=== PATIENT | female | born 2000 | race Hispanic/Latino ===

== ENCOUNTER 2023-07-06 10:35 | Day surgery (SDC) | payer OTHER, SELFPAY ==
[2023-07-06 11:25] LABS: Anion Gap 14 mmol/L (10-20); Calc. Creatinine Clearance 0 mL/min (70-130); Calcium 8.3 mg/dL (7.8-10.44); Carbon Dioxide 18 mmol/L (22-29); Chloride 107 mmol/L (98-107); Estimated GFR 133; Potassium 3.5 mmol/L (3.5-5.1); Sodium 135 mmol/L (136-145)
[2023-07-06 11:27] LABS: Hematocrit 39.2 % (34.9-44.5); Hemoglobin 13.3 g/dL (12.0-15.5); Mean Corpuscular HGB CONC 33.9 g/dL (32.0-36.0); Mean Corpuscular Volume 82.5 fl (81.6-98.3); Mean Platelet Volume 12.5 fl (7.4-10.4); Platelet Count 227 10x3/uL (150-450); RBC Distribution Width 14.2 % (11.5-14.5); Red Blood Cell (RBC) Count 4.75 10x6/uL (3.90-5.03); White Blood Cell (WBC) Count 14.2 10x3/uL (3.5-10.5)
[2023-07-06 11:29] LABS: MDiff Complete? YES
[2023-07-06 11:52] LABS: BUN (Urea Nitrogen) 5 mg/dL (7.0-18.7); Glucose 107 mg/dL (70-105)
[2023-07-06 13:06] LABS: Band 1 % (5-11); Eosinophils 2 % (0-10); Lymphocytes 13 % (21-51); Monocytes 1 % (0-10); Neutrophil 83 % (42-75)
[2023-07-06 13:07] LABS: Platelet Adequacy Comment Appears Adequate; RBC Morph Comment Within Normal Limits; Vacuoles SLIGHT
[2023-07-06] MEDS ORDERED: hydrALAZINE 20 MG/ML VIAL SLOW IVP PRN (14:03)
[2023-07-06] MEDS ORDERED: Acetaminophen 500 MG TAB PO PRN (14:03)
[2023-07-06] MEDS ORDERED: Promethazine HCl 25 MG/ML VIAL IM PRN (14:03)
[2023-07-06] MEDS ORDERED: Misoprostol 200 MCG TAB PR PRN (14:03)
[2023-07-06] MEDS ORDERED: Ondansetron PF 4 MG/2 ML Vial IVP PRN (14:03)
[2023-07-06] MEDS ORDERED: Oxytocin 30 units/NS 500 ML 500 ML IV SCH (14:15)
[2023-07-06] MEDS ORDERED: Acetaminophen 500 MG TAB PO SCH (16:30)
[2023-07-06 20:08] VITALS: BMI 26.5
[2023-07-07 13:00] LABS: Chlamydia by PCR, Vaginal Swab Not Detected (NotDetected); GC by PCR, Vaginal Swab Not Detected (NotDetected)
== END 2023-07-06 23:15 | disposition short-term general hospital (02) ==
LOC: CSHERS 10:35 → CSHLD/OP 13:21
PROVIDERS: ATTEND Obstetrics & Gynecology
DX: O20.8 Other hemorrhage in early pregnancy (principal); O99.891 Other specified diseases and conditions complicating pregnancy; R10.9 Unspecified abdominal pain; O34.32 Maternal care for cervical incompetence, second trimester; Z86.79 Personal history of other diseases of the circulatory system; Z87.51 Personal history of pre-term labor; Z87.59 Personal history of other complications of pregnancy, childbirth and the puerperium; Z79.82 Long term (current) use of aspirin; Z79.899 Other long term (current) drug therapy; Z90.49 Acquired absence of other specified parts of digestive tract; Z3A.18 18 weeks gestation of pregnancy
CPT/HCPCS: 76815; 80048; 85025; 86900; 86901; 87480; 87491; 87510; 87591; 87660; 99285

== ENCOUNTER 2023-07-09 20:16 | Inpatient (IN) | payer OTHER, SELFPAY ==
[2023-07-09] MEDS ORDERED: Oxytocin 30 units/NS 500 ML 500 ML ONE (20:25)
[2023-07-09] MEDS ORDERED: Morphine 4 MG/ML VIAL ONE (20:38)
[2023-07-09] MEDS ORDERED: Misoprostol 200 MCG TAB PR PRN (20:43)
[2023-07-09] MEDS ORDERED: Promethazine HCl 25 MG/ML VIAL IM PRN (20:43)
[2023-07-09] MEDS ORDERED: Diphenoxylate HCl/Atropine Tablet PO PRN (20:43)
[2023-07-09] MEDS ORDERED: hydrALAZINE 20 MG/ML VIAL SLOW IVP PRN (20:43)
[2023-07-09] MEDS ORDERED: Acetaminophen 500 MG TAB PO PRN (20:43)
[2023-07-09] MEDS ORDERED: Carboprost 250 MCG/ML AMP IM PRN (20:43)
[2023-07-09] MEDS ORDERED: Morphine 4 MG/ML VIAL SLOW IVP PRN (20:45)
[2023-07-09] MEDS ORDERED: Oxytocin 30 units/NS 500 ML 500 ML IV SCH (20:45)
[2023-07-09] MEDS: Lactated Ringer's 1,000 ML IV SCH (21:00)
[2023-07-09 21:28] VITALS: BMI 30.7
[2023-07-09 21:33] LABS: Hematocrit 36.5 % (34.9-44.5); Hemoglobin 12.5 g/dL (12.0-15.5); MDiff Complete? YES; Mean Corpuscular HGB CONC 34.2 g/dL (32.0-36.0); Mean Corpuscular Hemoglobin 28.6 pg (27.0-33.0); Mean Corpuscular Volume 83.5 fl (81.6-98.3); Mean Platelet Volume 12.1 fl (7.4-10.4); Platelet Count 217 10x3/uL (150-450); RBC Distribution Width 14.3 % (11.5-14.5); Red Blood Cell (RBC) Count 4.37 10x6/uL (3.90-5.03); White Blood Cell (WBC) Count 16.6 10x3/uL (3.5-10.5)
[2023-07-09] MEDS: Piperacillin/Tazobactam 3.375 GM in Sodium Chloride 0.9% 100 ML IVPB SCH (21:34)
[2023-07-09 21:42] LABS: ALT (SGPT) 15 U/L (8-55); AST (SGOT) 15 U/L (5-34); Albumin 3.1 g/dL (3.5-5.0); Alkaline Phosphatase 84 U/L (40-110); Anion Gap 14 mmol/L (10-20); BUN (Urea Nitrogen) 5 mg/dL (7.0-18.7); Bilirubin, Total 0.2 mg/dL (0.2-1.2); Calc. Creatinine Clearance 216 mL/min (70-130); Calcium 8.7 mg/dL (7.8-10.44); Carbon Dioxide 19 mmol/L (22-29); Chloride 108 mmol/L (98-107); Estimated GFR 132; Globulin 3.6 g/dL (2.4-3.5); Glucose 87 mg/dL (70-105); Potassium 3.5 mmol/L (3.5-5.1); Protein, Total 6.7 g/dL (6.0-8.3); Sodium 137 mmol/L (136-145)
[2023-07-09 21:57] LABS: Lymphocytes 13 % (21-51); Monocytes 5 % (0-10); Neutrophil 82 % (42-75)
[2023-07-09 22:03] LABS: Platelet Adequacy Comment Appears Adequate; RBC Morph Comment Within Normal Limits
[2023-07-09 22:50] LABS: Hep B Surf Ag - L&D Non-Reactive S/CO (NonReactive)
[2023-07-09 22:55] LABS: Syphilis Antibody Nonreactive (Nonreactive); Syphilis Antibody Index 0.09 S/CO (<1.00 Non-Reactive)
[2023-07-09] MEDS ORDERED: Morphine 4 MG/ML VIAL SLOW IVP SCH (23:15)
[2023-07-09] MEDS: Ondansetron PF 4 MG/2 ML Vial IVP PRN (23:38)
[2023-07-09] MEDS ORDERED: Piperacillin/Tazobactam 3.375 GM in Sodium Chloride 0.9% 100 ML IVPB SCH (23:59)
[2023-07-10] MEDS ORDERED: Morphine 4 MG/ML VIAL SLOW IVP PRN (01:34)
[2023-07-10] MEDS: Piperacillin/Tazobactam 3.375 GM in Sodium Chloride 0.9% 100 ML IVPB SCH ×2 (03:06→09:10)
[2023-07-10 03:50] LABS: #Basophils 0.1 10x3/uL (0.0-0.2); #Eosinphils 0.1 10x3/uL (0.0-0.5); #Monocytes 1.2 10x3/uL (0.0-1.1); #Neutrophils 16.4 10x3/uL (1.5-8.4); %Basophils 0.3 % (0.0-2.0); %Eosinophils 0.5 % (0.0-6.0); %Lymphocytes 8.2 % (18.0-47.0); %Monocytes 6.2 % (0.0-10.0); %Neutrophils 84.3 % (40.0-75.0); Hemoglobin 12.1 g/dL (12.0-15.5); Mean Corpuscular HGB CONC 34.6 g/dL (32.0-36.0); Mean Corpuscular Hemoglobin 28.7 pg (27.0-33.0); Mean Corpuscular Volume 83.1 fl (81.6-98.3); Mean Platelet Volume 12.2 fl (7.4-10.4); Platelet Count 212 10x3/uL (150-450); RBC Distribution Width 14.3 % (11.5-14.5); Red Blood Cell (RBC) Count 4.21 10x6/uL (3.90-5.03); White Blood Cell (WBC) Count 19.4 10x3/uL (3.5-10.5)
[2023-07-10 04:19] LABS: ALT (SGPT) 13 U/L (8-55); AST (SGOT) 13 U/L (5-34); Albumin 2.9 g/dL (3.5-5.0); Alkaline Phosphatase 77 U/L (40-110); Anion Gap 13 mmol/L (10-20); BUN (Urea Nitrogen) 5 mg/dL (7.0-18.7); Bilirubin, Total 0.3 mg/dL (0.2-1.2); Calc. Creatinine Clearance 238 mL/min (70-130); Calcium 8.4 mg/dL (7.8-10.44); Carbon Dioxide 18 mmol/L (22-29); Chloride 108 mmol/L (98-107); Estimated GFR 135; Globulin 3.4 g/dL (2.4-3.5); Glucose 89 mg/dL (70-105); Potassium 3.3 mmol/L (3.5-5.1); Protein, Total 6.3 g/dL (6.0-8.3); Sodium 136 mmol/L (136-145)
[2023-07-10] MEDS: Lactated Ringer's 1,000 ML IV SCH ×2 (04:46→14:26)
[2023-07-10] MEDS ORDERED: Diphenoxylate HCl/Atropine Tablet PO SCH (11:00)
[2023-07-10] MEDS ORDERED: Misoprostol 200 MCG TAB PR SCH (11:00)
[2023-07-10] MEDS: Carboprost 250 MCG/ML AMP IM SCH ×2 (11:07→11:32)
[2023-07-10] MEDS: Ondansetron PF 4 MG/2 ML Vial IVP PRN (11:13)
[2023-07-10] MEDS: fentaNYL 50 mcg/mL 1 mL Vial SLOW IVP SCH ×2 (11:22→14:26)
[2023-07-10] MEDS: Ibuprofen 800 MG TAB PO SCH ×2 (13:02→13:53)
== END 2023-07-10 22:54 | disposition home or self-care (01) | DRG 779 ==
LOC: CSHLD/OP 20:16 → CSHLD 20:43
PROVIDERS: ADMIT Obstetrics & Gynecology; ATTEND Obstetrics & Gynecology
PROC: 10E0XZZ Delivery of Products of Conception, External Approach (ICD-10-PCS; principal; 2023-07-10)
DX: O03.4 Incomplete spontaneous abortion without complication (principal)
CPT/HCPCS: 36415; 51701; 80053; 85025; 86780; 86850; 86900; 86901; 87340; 88305; 99285; J2270; J2405; J2543; J2550; J2590; J3010; J3490; J7120